=== PATIENT | male | born 1985 ===

== ENCOUNTER 2018-07-12 18:56 | Emergency (ER) | payer OTHER ==
[2018-07-12 19:20] VITALS: BP 135/78; PULSE 95; TEMP 98.6; BMI 21.3
--- NOTE | 2018-07-12 19:28 | PDOC ---
History of Present Illness - General Chief Complaint: Psychiatric Stated Complaint: PSYCHIATRIC Time Seen by Provider: 07/12/18 19:18 - History of Present Illness Initial Comments: 07/12/18 19:27 Mr. Herr is a 32 yo male with unknown pmh BIBA after calling for himself w/ complaints of seizure or "time stopping." Patient reports he took 3 1/2 capsules of haldol that was proscribed to him "to help him sleep." Following this he experienced the sensation of time stopping. He also endorses marijuana, cigarettes, and cigar use tonight. Patient unable to report pmh or other information. The patient denies chest pain, shortness of breath, headache and dizziness. Denies fever, chills, nausea, vomit, diarrhea and constipation. Denies dysuria, frequency, urgency and hematuria. Past History - Past Medical History Allergies/Adverse Reactions: Allergies Allergy/AdvReac Type Severity Reaction Status Date / Time No Known Allergies Allergy Verified 07/12/18 19:15 Asthma: Yes COPD: No Psychiatric Problems: Yes - Suicide/Smoking/Psychosocial Hx Smoking History: Current every day smoker Number of Cigarettes Smoked Daily: 2 Information on smoking cessation initiated: No Drug/Substance Use Hx: Yes ([facility]) Review of Systems - Review of Systems Comments:: 07/12/18 19:27 Unable to obtain further. *Physical Exam - Vital Signs Last Vital Signs Temp Pulse Resp BP Pulse Ox 98.6 F 95 H 18 135/78 07/12/18 19:16 07/12/18 19:16 07/12/18 19:16 07/12/18 19:16 - Physical Exam Comments: 07/12/18 19:27 GENERAL: +Patient slow in response and unclear in history.. Otherwise awake, alert, in no acute distress HEAD: No signs of trauma, normocephalic, atraumatic EYES: PERRLA, EOMI, sclera anicteric, conjunctiva clear ENT: Auricles normal inspection, hearing grossly normal, nares patent, oropharynx clear without exudates. Moist mucosa NECK: Normal ROM, supple, no lymphadenopathy, JVD, or masses LUNGS: No distress, speaks full sentences, clear to auscultation bilaterally HEART: Regular rate and rhythm, normal S1 and S2, no murmurs, rubs or gallops, peripheral pulses normal and equal bilaterally. ABDOMEN: Soft, nontender, normoactive bowel sounds. No guarding, no rebound. No masses EXTREMITIES: Normal inspection, Normal range of motion, no edema. No clubbing or cyanosis. NEUROLOGICAL: +Unable to properly assess. SKIN: Warm, Dry, normal turgor, no rashes or lesions noted. ED Treatment Course - LABORATORY CBC & Chemistry Diagram: 07/12/18 19:53 07/12/18 19:53 Medical Decision Making - Medical Decision Making 07/12/18 21:59 Mr. Herr is a 32 yo male w/ bipolar disorder (verbalized on repeat evaluation ) who presents for evaluation for "slowed feeling." Patient evaluated with labs as below and observed in ER for several hours. On repeat evaluation patient AOx3 and would like to go home. Labs grossly wnl. Patient advised to f/u w/ proscribing doctor of haldol first thing in morning and not take further until he does so. Discharging to home. Laboratory Results - last 24 hr 07/12/18 07/12/18 07/12/18 19:31 19:53 19:53 WBC 7.6 RBC 5.64 H Hgb 12.4 Hct 39.5 MCV 70.1 L MCH 22.1 L MCHC 31.5 L RDW 15.6 Plt Count 232 MPV 7.9 Absolute Neuts (auto) 4.3 Neutrophils % 55.9 Lymphocytes % 35.0 Monocytes % 7.0 Eosinophils % 1.6 Basophils % 0.5 Nucleated RBC % 0 Sodium 141 Potassium 4.0 Chloride 104 Carbon Dioxide 29 Anion Gap 7 L BUN 14 Creatinine 0.9 Creat Clearance w eGFR > 60 Random Glucose 104 Lactic Acid 1.5 Calcium 8.8 Total Bilirubin 0.2 AST 17 ALT 21 Alkaline Phosphatase 79 Total Protein 7.6 Albumin 4.1 *DC/Admit/Observation/Transfer Diagnosis at time of Disposition: Medication side effect Intoxication with cannabis Qualifiers: Complication of substance-induced condition: uncomplicated Qualified Code(s): F12.920 - Cannabis use, unspecified with intoxication, uncomplicated - Discharge Dispostion Disposition: HOME - Referrals - Patient Instructions Printed Discharge Instructions: DI for Altered Mental Status Additional Instructions: You were evaluated today in the ER for reaction after you took your haldol medication. No concerning findings were found at this time and you were noted to be alert and oriented at baseline, however you should follow-up with Dr. who proscribed haldol as soon as possible and before taking more of this medication. Return to ER if any further symptoms, fever, chills, or other concerning symptoms. - Post Discharge Activity
[2018-07-12] MEDS ORDERED: SODIUM CHLORIDE 1,000 ML IV STA (19:35)
[2018-07-12 20:40] LABS: BASO % 0.5 % (0-2.0); EOS % 1.6 % (0-4.5); HEMATOCRIT 39.5 % (35.4-49); HEMOGLOBIN 12.4 GM/dL (11.7-16.9); MCH 22.1 pg (25.7-33.7); MCHC 31.5 g/dl (32.0-35.9); MEAN CELL VOLUME 70.1 fl (80-96); MEAN PLT VOLUME 7.9 fl (7.5-11.1); NEUT % 55.9 % (42.8-82.8); PLATELET COUNT 232 K/MM3 (134-434); RBC 5.64 M/mm3 (4.00-5.60); RDW 15.6 % (11.9-15.9); WHITE BLOOD COUNT 7.6 K/mm3 (4.0-10.0)
[2018-07-12 21:22] LABS: ALBUMIN 4.1 g/dl (3.4-5.0); ALK PHOS 79 U/L (45-117); ANION GAP 7 MMOL/L (8-16); BILIRUBIN,TOTAL 0.2 mg/dL (0.2-1); BLOOD UREA NITROGEN 14 mg/dL (7-18); CALCIUM 8.8 mg/dL (8.5-10.1); CHLORIDE 104 mmol/L (98-107); CO2 29 mmol/L (21-32); CREATININE 0.9 mg/dL (0.55-1.3); GLUCOSE,RANDOM 104 mg/dL (74-106); SGOT/AST 17 U/L (15-37); SGPT/ALT 21 U/L (13-61); SODIUM 141 mmol/L (136-145); TOT PROT 7.6 g/dl (6.4-8.2)
--- NOTE | 2018-07-12 21:26 | PDOC ---
Attending Attestation - Resident Resident Name: Francisco Vail - ED Attending Attestation I have performed the following: I have examined & evaluated the patient, The case was reviewed & discussed with the resident, I agree w/resident's findings & plan - HPI HPI: 07/12/18 21:26 The patient is a 32 year old male, with a significant past medical history of asthma, bipolar d/o who presents to the emergency department with concern for possible seizure-like activity today after taking Haldol (to help him sleep) and smoking marijuana prior to arrival. He states he felt he was shaking and then stopped. He denies LOC or trauma. The patient denies chest pain, shortness of breath, headache and dizziness. The patient denies fever, chills, nausea, vomit, diarrhea and constipation. The patient denies dysuria, frequency, urgency and hematuria. Allergies: NKDA Past surgical history: none reported Social history: daily marijuana smoker. Occasional ETOH. 07/12/18 21:28 07/12/18 21:28 - Physicial Exam PE: 07/12/18 21:27 NAD, well appearing, PERRL, EOMI, MMM, nl conjunctiva, anicteric; neck supple. lungs clear, RRR, abdomen soft nontender. RENNER x4, no focal neuro deficits. 5/5 strength in all extrem, SILT. No peripheral edema. normal color for ethnicity, WWP. speech clear - Medical Decision Making 07/12/18 21:28 32 YOM with shaking activity post taking haldol for sleep and smoking cannibis. no trauma or infection or falls. no loc. no incontinence. DDx. drug intox, medication side effect, electrolyte/metabolic derangements. seizure. no focal deficits here. comfortable, normal mental status currently, no sz activity. Vital signs reviewed, wnl. Prior notes reviewed, including admissions, discharges and consultations. laboratory results and imaging reviewed, basic labs and lytes wnl, lactic also normal, less likely sz. 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 ED course: no acute events, remained stable and well appearing. Clinically improved after interventions, including IVF. gait stable, ambulatory, comfortable. eager for discharge, clear speech, well appearing. told to f/u pcp for meds and side effect, also advised cessation of cannibis use. no cp or sob. Dispo: Pt to be discharged in stable condition. Patient and family made aware of impression and plan, return precautions discussed (including but not limited to worsening pain or symptoms), fevers, or signs of infection, chest pain, respiratory distress, inability to tolerate oral intake, dehydration, syncope, or neurologic changes). Follow up with PMD and/or specialist as recommended, follow up information provided, take medications as instructed for duration of time. continue with supportive care, avoid triggers and precipitants. All questions answered to patient's satisfaction and expressed understanding and comfort with this. 07/12/18 22:12
== END 2018-07-12 22:55 | disposition home or self-care (01) ==
LOC: JER 18:56
PROC: 3E0337Z Introduction of Electrolytic and Water Balance Substance into Peripheral Vein, Percutaneous Approach (ICD-10-PCS; principal; 2018-07-12)
DX: T43.4X5A Adverse effect of butyrophenone and thiothixene neuroleptics, initial encounter (principal); R41.82 Altered mental status, unspecified; F12.10 Cannabis abuse, uncomplicated; F17.210 Nicotine dependence, cigarettes, uncomplicated; F17.290 Nicotine dependence, other tobacco product, uncomplicated
CPT/HCPCS: 36415; 80053; 83605; 85025; 96360; 99283-25; J7030